=== PATIENT | female | born 1940 | race Caucasian/White ===

== ENCOUNTER → 2017-05-14 | Outpatient (CLI) | payer OTHER, MEDICAID | END | disposition home or self-care (01) | LOC: KCIC US 11:51 | DX: M79.604 Pain in right leg (principal) | CPT/HCPCS: 93971 ==

== ENCOUNTER → 2017-10-05 | Outpatient (CLI) | payer OTHER, MEDICAID ==
[2017-10-06 10:42] LABS: MRSA BY PCR Negative (Negative)
== END | disposition home or self-care (01) ==
LOC: SURGPAT 12:31
DX: Z01.818 Encounter for other preprocedural examination (principal); M17.11 Unilateral primary osteoarthritis, right knee; E11.9 Type 2 diabetes mellitus without complications; R00.0 Tachycardia, unspecified
CPT/HCPCS: 71046; 87641; 93005

== ENCOUNTER 2017-10-27 09:36 | Inpatient (IN) | payer OTHER, MEDICAID ==
[2017-10-27] VITALS (7 sets, daily range): BP systolic 100–134; BP diastolic 56–68
[~2017-10-27] VITALS: Ht 160 cm; Wt 67.6 kg
[~2017-10-27 09:36] MED LIST: ASCO-78 PO; CALC-56 PO; CHOL10002 PO; CLINDAMYCIN 900MG PREMIX 50 ML IV PRN; DEXAMETHASONE SOD PHOS 20 MG/5 ML VIAL. ONE; FERR325T14 PO; GLIP10TA13 PO; HYDROcodone/APAP 7.5/325MG 1 TAB TABLET PO PRN; INSU100V13 SQ; IV RINGERS,LACTATED 1000ML 1,000 ML IV SCH; KETOROLAC 30 MG/ML INJ FOR OR. INJ ONE; LACT1CAP29 PO; LEVO25TA4 PO; LIDOCAINE 1% PF 2 ML VIAL. ID PRN; LIDOCAINE 2% PF Vial for OR 5 ML VIAL. ONE; LOSA50TA6 PO; LOVA20TA2 PO; MELOXICAM 7.5 MG TABLET PO PRN; METF850T2 PO; MORPHINE SULFATE 2 MG/ML VIAL. IV PRN; MORPHINE SULFATE 5 MG, KETOROLAC 30MG VIAL 30 MG, ROPIVacaine 0.5% PF 60 ML, EPINEPHrin... INT ART ONE; ONDANSETRON PF 4 MG/2 ML VIAL. IV PRN; ONDANSETRON PF 4 MG/2 ML VIAL. ONE; PROCHLORPERAZINE 10 MG/2 ML VIAL. IV PRN; PROP15DR OP; PROPOFOL 20 ML IV ONE; SEVOFLURANE 61 TO 120 MINUTES. IH ONE; SUCR1TAB PO; TRANEXAMIC ACID 1,000 MG in IV NS 50ML -- 1ST BAG INJ ONE; TRANEXAMIC ACID 1,000 MG in IV NS 50ML -- 2ND BAG INJ ONE; VIT1TABL32 PO; fentaNYL PF VIAL 100 MCG/2 ML VIAL IV PRN; fentaNYL PF VIAL 100 MCG/2 ML VIAL ONE
--- NOTE | 2017-10-27 10:51 | HP ---
ADMIT DATE: 10/27/2017 CHIEF COMPLAINT: Right knee pain, degenerative change. HISTORY OF PRESENT ILLNESS: The patient has right knee pain, worsening with time. She has wqfl-bh-[id number] arthropathy and the steroid injection only lasted about 3 weeks. She continues to have severe pain with activity and on startup, very limiting to her activities of daily living. PAST MEDICAL HISTORY: Significant for retinopathy. PAST SURGICAL HISTORY: Left femur fracture repair, left hip arthroplasty, gallbladder surgery, cataract surgeries and tonsillectomy. FAMILY HISTORY: Breast cancer in her mother, heart disease in her father. SOCIAL HISTORY: Denies smoking, alcohol or drug use. MEDICATIONS: Medication list is reviewed. ALLERGIES: INCLUDE PENICILLIN, WHICH GIVE HER HIVES; A COUGH WITH LISINOPRIL AND VOMITING WITH SULFA. REVIEW OF SYSTEMS: Denies any chest pain, shortness of breath, recent fever, chills or other constitutional symptoms. PHYSICAL EXAMINATION: VITAL SIGNS: Per admission sheet. HEENT: Atraumatic, normocephalic. HEART: Regular rate and rhythm. LUNGS: Clear to auscultation bilaterally. ABDOMEN: Benign. EXTREMITIES: Knee examination shows significant crepitus on motion. She has a slight effusion, pain over the medial joint line, a Ontiveros cyst palpable posteriorly, and slight varus. No gross instability. Normal examination of the contralateral knee. Well-healed incision from hip arthroplasty. Normal alignment and stability of bilateral hips and ankles. IMPRESSION: Osteoarthritis, right knee with medial-sided knee pain. TREATMENT PLAN: We have previously discussed total knee arthroplasty with her, risks benefits and postoperative course, including the possibility of infection, nerve or blood vessel damage, medical or other anesthetic complications, premature wear or loosening, continued pain among others. All her questions were answered. She wishes to proceed with surgical evaluation and treatment, which will occur today with [facility] admission to follow. AIYANA ENNIS MD DR: MELISSA/livia JOB#: [id number] / [id number]
[2017-10-27] MEDS ORDERED: PHENYLEPHRINE in 0.9% NACL PF 1 MG/10 ML SYRINGE. IV ONE (10:56)
[2017-10-27] MEDS: IV DEXTROSE 5 %-0.45 % NACL 1,000 ML IV SCH ×2 (12:32→20:51)
[2017-10-27] MEDS ORDERED: PROCHLORPERAZINE 10 MG/2 ML VIAL. IV PRN (12:45)
[2017-10-27] MEDS ORDERED: traMADol 50 MG TABLET PO PRN ×2 (12:45)
[2017-10-27] MEDS ORDERED: MORPHINE SULFATE 2 MG/ML VIAL. IV PRN (12:45)
[2017-10-27] MEDS ORDERED: DEXTROSE 50% 25 GM / 50ML DISP.SYRIN. IV PRN ×2 (12:45→17:45)
[2017-10-27] MEDS ORDERED: HYDROcodone/APAP 7.5/325MG 1 TAB TABLET PO PRN (12:45)
[2017-10-27] MEDS ORDERED: oxyCODONE/APAP 5/325 1 TAB TABLET PO PRN (12:45)
[2017-10-27] MEDS ORDERED: oxyCODONE/APAP 7.5/325 1 TAB TABLET PO PRN (12:45)
[2017-10-27] MEDS ORDERED: HYDROcodone/APAP 10/325 1 TAB TABLET PO PRN (12:45)
[2017-10-27] MEDS ORDERED: diphenhydrAMINE 50 MG/ML VIAL IV PRN (12:45)
[2017-10-27] MEDS ORDERED: 0.9 % SODIUM CHLORIDE 10 ML DISP.SYRIN. IV PRN (12:45)
[2017-10-27] MEDS ORDERED: ZOLPIDEM 5 MG TABLET. PO PRN (12:45)
[2017-10-27] MEDS ORDERED: fentaNYL PF VIAL 100 MCG/2 ML VIAL IV PRN ×2 (12:45)
[2017-10-27] MEDS ORDERED: MORPHINE SULFATE 4 MG/ML VIAL. IV PRN (12:45)
[2017-10-27] MEDS ORDERED: CALCIUM CARBONATE 500 MG TAB.CHEW PO PRN (12:45)
--- NOTE | 2017-10-27 13:41 | PDOC4 ---
Operative Note Operative Note Date of procedure 10/27/2017 Preoperative diagnosis: Degenerative joint disease right knee Postoperative diagnosis: Same Operative procedure: Right total knee arthroplasty Surgeon: Yolanda Assist: Mehdi Anesthesia: Gen. Estimated blood loss: 500 mL Complications: None Operative indications: Jessika is a 77-year-old female with ongoing and increasing right knee pain unresponsive to nonoperative treatment now severely affecting her activities of daily living worse on start up and with activity. We had previously discussed risks benefits postoperative course of total knee arthroplasty including the possibility of infection continued pain nerve or blood vessel damage medical or other anesthetic complications among others all her questions were answered and she wishes to proceed with surgical evaluation and treatment Operative text: Patient was identified procedure verified patient placed in the supine position on the operating table. After adequate amounts of general anesthesia were administered the right lower extremity was prepped and draped in standard sterile fashion and after timeout was performed patient procedure identified and verified a midline incision was made medial parapatellar approach fat pad was excised a short intramedullary guide was used due to her hardware present in the femur distal femoral cut was made and femur was sized at a size 2 femoral component anterior posterior and chamfer cuts were then made posterior cruciate ligament was preserved with a standard extra medullary tibial cut and flexion and extension gaps balanced with a size 9 spacer. Tibia was sized at a size 2 drilled and broached and a biconvex patella was prepared and medialized lateral patellar bone was chamfered to minimize any contact. Excellent positioning tracking ligament balance and motion was noted trial components were removed and bleeding points were controlled in the synovium and capsule with the aqua Mantis device and the following components were cemented in place with polymethyl methacrylate cement a size 2 right journey tibial baseplate a size 2 right cruciate retaining Oxinium femoral component with a 9 mm spacer and a 23 mm biconvex patellar component. Excess cement was removed and when dry a 9 mm journey 2 articular insert was snapped into place after thorough irrigation with normal saline solution Hemovac drain and pain catheter were placed pain catheter mixture was injected throughout the joint capsule closure accomplished with interrupted #2 Ethibond suture and reinforced with #1 PDS strata fix suture subcutaneous closure with buried Vicryl suture subcuticular 3-0 Monocryl strata fix used to close the skin and a lizette drain was placed patient was returned to recovery room in stable condition having tolerated the procedure well no tourniquet was used for the procedure AIYANA ENNIS MD Oct 27, 2017 13:41
--- NOTE | 2017-10-27 13:44 | RAD ---
2 views right knee 10/27/2017 1:16 PM Indication: post op Comparison: knee radiographs June 02, 2009 Findings: There are postsurgical changes consistent with recent total knee arthroplasty. Surgical drainage catheter noted in place. No fracture or dislocation is seen. Hardware appears normal in position. Joint effusion and intra-articular gas noted. Partially visualized plate and screw constructs involving the distal femoral diaphysis are seen with changes of chronic bony healing including medial callus formation. IMPRESSION: Expected post surgical changes following recent total knee arthroplasty Electronically signed by: Navin Cabrera MD (10/27/2017 1:40 PM) [facility]
[2017-10-27] MEDS ORDERED: WARFARIN 7.5 MG TABLET. PO ONE (16:00)
[2017-10-27] MEDS: FERROUS SULFATE 325 MG TABLET. PO SCH (17:00)
[2017-10-27] MEDS: metFORMIN 850 MG TABLET PO SCH (17:00)
[2017-10-27] MEDS: CLINDAMYCIN 900MG PREMIX 50 ML IV SCH ×2 (17:11→22:47)
[2017-10-27] MEDS: KETOROLAC 30MG VIAL 30 MG, BUPIVACAINE MPF 0.25% 20 ML, EPINEPHrine 0.5 MG in TOTAL VOL... INT ART SCH (17:40)
[2017-10-27] MEDS: INSULIN LISPRO 300 UNITS/3 ML INSULN.PEN. SQ SCH (17:47)
[2017-10-27] MEDS: KETOROLAC TROMETHAMINE 10 MG TABLET PO SCH ×2 (18:00→23:53)
[2017-10-27] MEDS: ATORVASTATIN CALCIUM 10 MG TABLET. PO SCH (20:50)
[2017-10-27] MEDS: SUCRALFATE 1 GM TABLET. PO SCH (20:50)
[2017-10-27] MEDS: INSULIN GLARGINE 300 UNITS/3 ML INSULN.PEN. SQ SCH (20:56)
[2017-10-27] MEDS: POLYVINYL ALCOHOL 1.4% OPHTH SOLUTION 15ML BOTTLE. OU SCH (21:00)
[2017-10-28 03:15] VITALS: BP 103/51
[2017-10-28] MEDS: CLINDAMYCIN 900MG PREMIX 50 ML IV SCH (04:47)
[2017-10-28 05:00] LABS: PROTHROMBIN TIME PATIENT 14.8 SEC (11.7-14.0)
[2017-10-28 05:01] LABS: HEMATOCRIT 28.7 % (36.0-47.0); HEMOGLOBIN 9.7 g/dL (12.0-15.5)
[2017-10-28] MEDS: KETOROLAC 30MG VIAL 30 MG, BUPIVACAINE MPF 0.25% 20 ML, EPINEPHrine 0.5 MG in TOTAL VOL... INT ART SCH (05:47)
[2017-10-28] MEDS: KETOROLAC TROMETHAMINE 10 MG TABLET PO SCH ×4 (05:47→23:51)
[2017-10-28] MEDS ORDERED: MAGNESIUM HYDROXIDE 2,400 MG/30 ML ORAL.SUSP. PO PRN (06:00)
[2017-10-28 06:15] VITALS: BP 92/50
[2017-10-28] MEDS: SUCRALFATE 1 GM TABLET. PO SCH ×2 (07:01→21:06)
[2017-10-28] MEDS: LEVOTHYROXINE 25 MCG TABLET. PO SCH ×2 (07:01→08:03)
--- NOTE | 2017-10-28 07:34 | PDOC ---
ORTHO PROGRESS NOTES Subjective Patient states doing well but was nauseated earlier. Post-op Day: 1 Procedure R TKA Vitals Vital Signs Date Time Temp Pulse Resp B/P (MAP) Pulse Ox O2 Delivery O2 Flow Rate FiO2 10/28/17 06:15 98.0 78 18 92/50 (64) 94 Room Air 98.0 10/27/17 15:30 2.0 Labs Laboratory Tests Test 10/27/17 10:15 10/27/17 10:20 10/27/17 11:47 10/27/17 12:51 Prothrombin Time 12.0 SEC (11.7-14.0) Prothromb Time International Ratio 0.9 (0.8-1.1) Activated Partial Thromboplast Time 28 SEC (24-38) Glucose (Fingerstick) 196 mg/dL (70-99) 211 mg/dL (70-99) 145 mg/dL (70-99) Test 10/27/17 16:52 10/27/17 20:38 10/28/17 04:15 10/28/17 06:22 Glucose (Fingerstick) 267 mg/dL (70-99) 286 mg/dL (70-99) 280 mg/dL (70-99) Hemoglobin 9.7 g/dL (12.0-15.5) Hematocrit 28.7 % (36.0-47.0) Mean Corpuscular Hemoglobin Concent 34 g/dL (31-37) Prothrombin Time 14.8 SEC (11.7-14.0) Prothromb Time International Ratio 1.2 (0.8-1.1) Laboratory Tests Test 10/27/17 10:15 10/27/17 10:20 10/27/17 11:47 10/27/17 12:51 Prothrombin Time 12.0 SEC (11.7-14.0) Prothromb Time International Ratio 0.9 (0.8-1.1) Activated Partial Thromboplast Time 28 SEC (24-38) Glucose (Fingerstick) 196 mg/dL (70-99) 211 mg/dL (70-99) 145 mg/dL (70-99) Test 10/27/17 16:52 10/27/17 20:38 10/28/17 04:15 10/28/17 06:22 Glucose (Fingerstick) 267 mg/dL (70-99) 286 mg/dL (70-99) 280 mg/dL (70-99) Hemoglobin 9.7 g/dL (12.0-15.5) Hematocrit 28.7 % (36.0-47.0) Mean Corpuscular Hemoglobin Concent 34 g/dL (31-37) Prothrombin Time 14.8 SEC (11.7-14.0) Prothromb Time International Ratio 1.2 (0.8-1.1) Assessment and Plan N/V intact at the lower extremity moving toes and feet on request dressing dry and intact PT today JENI MELO APRN Oct 28, 2017 07:34
[2017-10-28] MEDS: glipiZIDE 5 MG TABLET PO SCH (08:02)
[2017-10-28] MEDS: metFORMIN 850 MG TABLET PO SCH ×2 (08:02→17:43)
[2017-10-28] MEDS: SENNOSIDES/DOCUSATE 8.6/50MG TABLET. PO SCH (08:02)
[2017-10-28] MEDS: MULTIVITAMIN with MINERAL TABLET. PO SCH (08:05)
[2017-10-28] MEDS: FERROUS SULFATE 325 MG TABLET. PO SCH ×2 (08:05→17:00)
[2017-10-28] MEDS: INSULIN LISPRO 300 UNITS/3 ML INSULN.PEN. SQ SCH ×3 (08:11→17:00)
[2017-10-28] MEDS ORDERED: FERROUS SULFATE 325 MG TABLET. PO SCH (09:00)
[2017-10-28] MEDS: LOSARTAN POTASSIUM 50 MG TABLET. PO SCH (09:00)
[2017-10-28] MEDS: IV DEXTROSE 5 %-0.45 % NACL 1,000 ML IV SCH ×2 (09:50→18:26)
[2017-10-28] MEDS: ACETAMINOPHEN 325 MG TABLET. PO PRN (10:23)
[2017-10-28 11:50] VITALS: BP 132/64
[2017-10-28] MEDS: ONDANSETRON PF 4 MG/2 ML VIAL. IV PRN (11:53)
[2017-10-28] MEDS: PROCHLORPERAZINE 5 MG TABLET. PO PRN (15:13)
[2017-10-28] MEDS ORDERED: WARFARIN 5 MG TABLET. PO ONE (16:00)
[2017-10-28] MEDS ORDERED: BISACODYL 10 MG SUPP.RECT. PR PRN (16:00)
[2017-10-28 18:31] VITALS: BP 105/58
--- NOTE | 2017-10-28 18:52 | PDOC ---
PROGRESS NOTES Subjective Subjective Problems overnight: Jessika was nauseated earlier now resolved reports her right knee is doing well Objective Vital Signs Vital Signs Date Time Temp Pulse Resp B/P (MAP) Pulse Ox O2 Delivery O2 Flow Rate FiO2 10/28/17 18:31 98.1 80 18 105/58 (74) 98 Room Air 98.1 10/27/17 15:30 2.0 Physical Exam Tash dressing shows no drainage whatsoever she has some mild swelling good motion and stability distal neurovascular status intact Labs Laboratory Tests Test 10/27/17 10:15 10/27/17 10:20 10/27/17 11:47 10/27/17 12:51 Prothrombin Time 12.0 SEC (11.7-14.0) Prothromb Time International Ratio 0.9 (0.8-1.1) Activated Partial Thromboplast Time 28 SEC (24-38) Glucose (Fingerstick) 196 mg/dL (70-99) 211 mg/dL (70-99) 145 mg/dL (70-99) Test 10/27/17 16:52 10/27/17 20:38 10/28/17 04:15 10/28/17 06:22 Glucose (Fingerstick) 267 mg/dL (70-99) 286 mg/dL (70-99) 280 mg/dL (70-99) Hemoglobin 9.7 g/dL (12.0-15.5) Hematocrit 28.7 % (36.0-47.0) Mean Corpuscular Hemoglobin Concent 34 g/dL (31-37) Prothrombin Time 14.8 SEC (11.7-14.0) Prothromb Time International Ratio 1.2 (0.8-1.1) Test 10/28/17 11:46 10/28/17 16:05 Glucose (Fingerstick) 213 mg/dL (70-99) 122 mg/dL (70-99) Laboratory Tests Test 10/27/17 20:38 10/28/17 04:15 10/28/17 06:22 10/28/17 11:46 Glucose (Fingerstick) 286 mg/dL (70-99) 280 mg/dL (70-99) 213 mg/dL (70-99) Hemoglobin 9.7 g/dL (12.0-15.5) Hematocrit 28.7 % (36.0-47.0) Mean Corpuscular Hemoglobin Concent 34 g/dL (31-37) Prothrombin Time 14.8 SEC (11.7-14.0) Prothromb Time International Ratio 1.2 (0.8-1.1) Test 10/28/17 16:05 Glucose (Fingerstick) 122 mg/dL (70-99) Assessment Assessment POD# [1], S/P [total knee arthroplasty] Plan Plan of Care Continue mobilize weightbearing as tolerated with physical therapy Coumadin anticoagulation AIYANA ENNIS MD Oct 28, 2017 18:52
[2017-10-28] MEDS: ATORVASTATIN CALCIUM 10 MG TABLET. PO SCH (21:06)
[2017-10-28] MEDS: POLYVINYL ALCOHOL 1.4% OPHTH SOLUTION 15ML BOTTLE. OU SCH (21:06)
[2017-10-28] MEDS: INSULIN GLARGINE 300 UNITS/3 ML INSULN.PEN. SQ SCH (21:10)
[2017-10-29 04:48] LABS: HEMATOCRIT 27.6 % (36.0-47.0); HEMOGLOBIN 9.6 g/dL (12.0-15.5)
[2017-10-29 05:00] LABS: PROTHROMBIN TIME PATIENT 19.8 SEC (11.7-14.0)
[2017-10-29] MEDS: KETOROLAC TROMETHAMINE 10 MG TABLET PO SCH ×3 (05:37→17:00)
[2017-10-29 06:30] VITALS: BP 117/54
[2017-10-29] MEDS: SUCRALFATE 1 GM TABLET. PO SCH ×2 (07:09→20:59)
[2017-10-29] MEDS: LEVOTHYROXINE 25 MCG TABLET. PO SCH (07:09)
[2017-10-29] MEDS: glipiZIDE 5 MG TABLET PO SCH (07:30)
[2017-10-29] MEDS: FERROUS SULFATE 325 MG TABLET. PO SCH ×2 (07:37→17:00)
[2017-10-29] MEDS: INSULIN LISPRO 300 UNITS/3 ML INSULN.PEN. SQ SCH ×3 (07:37→17:13)
[2017-10-29] MEDS: metFORMIN 850 MG TABLET PO SCH ×2 (08:00→17:04)
[2017-10-29] MEDS: ONDANSETRON PF 4 MG/2 ML VIAL. IV PRN (08:16)
[2017-10-29] MEDS: SENNOSIDES/DOCUSATE 8.6/50MG TABLET. PO SCH (09:00)
[2017-10-29] MEDS: LOSARTAN POTASSIUM 50 MG TABLET. PO SCH (09:00)
[2017-10-29] MEDS: MULTIVITAMIN with MINERAL TABLET. PO SCH (09:00)
[2017-10-29] MEDS: PROCHLORPERAZINE 5 MG TABLET. PO PRN (11:36)
--- NOTE | 2017-10-29 12:28 | PDOC ---
PROGRESS NOTES Subjective Subjective Problems overnight: Nauseated today but knee feels good and otherwise doing well with physical therapy Objective Vital Signs Vital Signs Date Time Temp Pulse Resp B/P (MAP) Pulse Ox O2 Delivery O2 Flow Rate FiO2 10/29/17 08:29 Room Air 10/29/17 06:30 97.9 85 20 117/54 (75) 96 97.9 10/27/17 15:30 2.0 Physical Exam Tash dressing with no drainage whatsoever minimal swelling good alignment motion stability intact distal neurovascular status Labs Laboratory Tests Test 10/27/17 12:51 10/27/17 16:52 10/27/17 20:38 10/28/17 04:15 Glucose (Fingerstick) 145 mg/dL (70-99) 267 mg/dL (70-99) 286 mg/dL (70-99) Hemoglobin 9.7 g/dL (12.0-15.5) Hematocrit 28.7 % (36.0-47.0) Mean Corpuscular Hemoglobin Concent 34 g/dL (31-37) Prothrombin Time 14.8 SEC (11.7-14.0) Prothromb Time International Ratio 1.2 (0.8-1.1) Test 10/28/17 06:22 10/28/17 11:46 10/28/17 16:05 10/28/17 20:41 Glucose (Fingerstick) 280 mg/dL (70-99) 213 mg/dL (70-99) 122 mg/dL (70-99) 152 mg/dL (70-99) Test 10/29/17 04:30 10/29/17 06:22 10/29/17 11:31 Hemoglobin 9.6 g/dL (12.0-15.5) Hematocrit 27.6 % (36.0-47.0) Mean Corpuscular Hemoglobin Concent 35 g/dL (31-37) Prothrombin Time 19.8 SEC (11.7-14.0) Prothromb Time International Ratio 1.8 (0.8-1.1) Glucose (Fingerstick) 110 mg/dL (70-99) 233 mg/dL (70-99) Laboratory Tests Test 10/28/17 16:05 10/28/17 20:41 10/29/17 04:30 10/29/17 06:22 Glucose (Fingerstick) 122 mg/dL (70-99) 152 mg/dL (70-99) 110 mg/dL (70-99) Hemoglobin 9.6 g/dL (12.0-15.5) Hematocrit 27.6 % (36.0-47.0) Mean Corpuscular Hemoglobin Concent 35 g/dL (31-37) Prothrombin Time 19.8 SEC (11.7-14.0) Prothromb Time International Ratio 1.8 (0.8-1.1) Test 10/29/17 11:31 Glucose (Fingerstick) 233 mg/dL (70-99) Assessment Assessment POD# [2], S/P [right total knee arthroplasty] Plan Plan of Care IV was restarted due to nausea, blood sugars remained stable Continue Coumadin anticoagulation and physical therapy AIYANA ENNIS MD Oct 29, 2017 12:28
[2017-10-29] MEDS ORDERED: MAGNESIUM HYDROXIDE 2,400 MG/30 ML ORAL.SUSP. PO PRN (15:00)
[2017-10-29] MEDS ORDERED: WARFARIN 1 MG TABLET. PO ONE (16:00)
[2017-10-29 19:00] VITALS: BP 111/56
[2017-10-29] MEDS: ATORVASTATIN CALCIUM 10 MG TABLET. PO SCH (20:58)
[2017-10-29] MEDS: ACETAMINOPHEN 325 MG TABLET. PO PRN (20:59)
[2017-10-29] MEDS: POLYVINYL ALCOHOL 1.4% OPHTH SOLUTION 15ML BOTTLE. OU SCH (20:59)
[2017-10-29] MEDS: INSULIN GLARGINE 300 UNITS/3 ML INSULN.PEN. SQ SCH (21:06)
[2017-10-30] MEDS: KETOROLAC TROMETHAMINE 10 MG TABLET PO SCH ×3 (06:00→11:53)
[2017-10-30 06:21] VITALS: BP 120/61
[2017-10-30] MEDS: SUCRALFATE 1 GM TABLET. PO SCH (07:09)
[2017-10-30 07:41] LABS: HEMATOCRIT 31.9 % (36.0-47.0); HEMOGLOBIN 10.8 g/dL (12.0-15.5)
[2017-10-30] MEDS: INSULIN LISPRO 300 UNITS/3 ML INSULN.PEN. SQ SCH ×2 (08:00→11:44)
[2017-10-30] MEDS: FERROUS SULFATE 325 MG TABLET. PO SCH (08:00)
[2017-10-30 08:06] LABS: PROTHROMBIN TIME PATIENT 17.9 SEC (11.7-14.0)
[2017-10-30] MEDS: metFORMIN 850 MG TABLET PO SCH (08:10)
[2017-10-30] MEDS: glipiZIDE 5 MG TABLET PO SCH (08:11)
[2017-10-30] MEDS: MULTIVITAMIN with MINERAL TABLET. PO SCH (09:00)
[2017-10-30] MEDS: SENNOSIDES/DOCUSATE 8.6/50MG TABLET. PO SCH (09:00)
[2017-10-30] MEDS ORDERED: TRAM50TA PO (10:47)
[2017-10-30] MEDS ORDERED: WARF2TAB96 PO (10:48)
[2017-10-30 11:46] VITALS: BP 131/72
[2017-10-30] MEDS: LOSARTAN POTASSIUM 50 MG TABLET. PO SCH (11:48)
[2017-10-30] MEDS ORDERED: WARFARIN 4 MG TABLET. PO ONE (14:00)
[2017-10-30 14:53] VITALS: BP 115/61
--- NOTE | 2017-10-30 15:09 | DS ---
DATE OF DISCHARGE: 10/30/2017 PRINCIPAL DIAGNOSIS: Degenerative joint disease, right knee. PROCEDURE: Right total knee arthroplasty. DISPOSITION: Home with home health. ACTIVITY: Weightbearing as tolerated, standard total knee protocol. Follow up with Dr. Guerrero in 2 weeks, maintain CAROLE drain. Report any redness, drainage, fever, chills, uncontrolled pain or other problems. DISPOSITION MEDICATIONS: Tramadol 50 mg p.o. q.6 hours p.r.n. pain, Coumadin as directed by anticoagulation clinic, resume preoperative medications. BRIEF DESCRIPTION OF HOSPITAL COURSE: The patient underwent an uncomplicated total knee arthroplasty. She did very well with physical therapy, had overall very good pain control throughout as well. Her main issue was some on and off nausea, which was present despite scopolamine patch and nausea medications. She underwent resumption of her fluid on postoperative day #2 due to the nausea and decreased oral intake. Blood sugar control remained good. She progressed well through physical therapy, and on postoperative day #3, she was noted to be doing very well, was stable and discharged home in stable condition. AIYANA GUERRERO MD DR: MELISSA/livia JOB#: [id number] / [id number]
[2017-10-31] MEDS ORDERED: WARFARIN 4 MG TABLET. PO SCH (16:00)
--- NOTE | 2017-11-01 16:07 | PATHOLOGY ---
[facility] Accession Number: [id number] . 01 Material submitted: . RIGHT KNEE BONE AND TISSUE . 01 Clinical history: . Right knee osteoarthritis . 02 Diagnosis: "Right knee bone and tissue": - Degenerative osteoarthritis. - Portions of synovium with mild chronic inflammation. (SKM:carlos; 10/29/2017) QMS/10/30/2017 . 02 Electronically signed: . Vijay Cooper MD, Pathologist NPI- [id number] . 01 Gross description: . The specimen is received in formalin, labeled "[place], Jessika and right knee bone and tissue", are multiple segments of merino-yellow bones with recognizable tibia plateau, patella, meniscus and merino-yellow and patel-white soft tissue measuring 10.0 x 9.5 x 2.0 in aggregate. Several fragments have eburnated areas with the remaining articular cartilage merino-yellow and smooth. Peripheral osteophytes are present. Carriage Setter sections are submitted in A1-A2 (A1 = bone after decalcification). ([facility]; 10/28/2017) SHS/SHS . 02 Pathologist provided ICD-10: M17.11, M65.861 . 02 CPT . 518350, [id number] Performed at: 01 [facility] [address], [place] [id number] MD Rober Sanchez MD Phone: [phone] Performed at: 02 [facility] [address] [id number] MD Steve Dennis MD Phone: [phone]
== END 2017-10-30 15:25 | disposition home health service (06) | DRG 470 ==
LOC: OPSVCIP 09:36 → 4 SOUTHEST 14:31
PROVIDERS: ADMIT Orthopaedic Surgery; ATTEND Orthopaedic Surgery
PROC: 0SRC069 Replacement of Right Knee Joint with Oxidized Zirconium on Polyethylene Synthetic Substitute, Cemented, Open Approach (ICD-10-PCS; principal; 2017-10-27 11:15)
DX: M17.11 Unilateral primary osteoarthritis, right knee (principal); Z96.642 Presence of left artificial hip joint; H35.00 Unspecified background retinopathy; Z90.89 Acquired absence of other organs; Z98.49 Cataract extraction status, unspecified eye; Z88.0 Allergy status to penicillin; Z88.2 Allergy status to sulfonamides; Z88.8 Allergy status to other drugs, medicaments and biological substances; Z80.3 Family history of malignant neoplasm of breast; Z82.49 Family history of ischemic heart disease and other diseases of the circulatory system
CPT/HCPCS: 36415; 73560; 82962; 85014; 85018; 85610; 85730; 86850; 86870; 86900; 86901; 86902; 86922; 88305; 88311; A7015; C1713; J0171; J0780; J1100; J1815; J1885; J2001; J2270; J2370; J2405; J2704; J2795; J3010; J3490; J7030; J7120; Q0164; 97110; 97116; 97150; 97530; 97535; C1769

== ENCOUNTER 2017-12-19 10:43 | Emergency (ER) | payer OTHER, MEDICAID ==
[~2017-12-19] VITALS: Ht 160 cm; Wt 64.9 kg
[~2017-12-19 10:43] MED LIST changes: +BISM262T9 PO; -CLINDAMYCIN 900MG PREMIX 50 ML IV PRN; -DEXAMETHASONE SOD PHOS 20 MG/5 ML VIAL. ONE; -HYDROcodone/APAP 7.5/325MG 1 TAB TABLET PO PRN; -IV RINGERS,LACTATED 1000ML 1,000 ML IV SCH; -KETOROLAC 30 MG/ML INJ FOR OR. INJ ONE; -LIDOCAINE 1% PF 2 ML VIAL. ID PRN; -LIDOCAINE 2% PF Vial for OR 5 ML VIAL. ONE; -LOSA50TA6 PO; +LOSA50TA7 PO; -MELOXICAM 7.5 MG TABLET PO PRN; -METF850T2 PO; +METF850T8 PO; +METR250T11 PO; -MORPHINE SULFATE 2 MG/ML VIAL. IV PRN; -MORPHINE SULFATE 5 MG, KETOROLAC 30MG VIAL 30 MG, ROPIVacaine 0.5% PF 60 ML, EPINEPHrin... INT ART ONE; +OMEP20TA8 PO; -ONDANSETRON PF 4 MG/2 ML VIAL. IV PRN; -ONDANSETRON PF 4 MG/2 ML VIAL. ONE; -PROCHLORPERAZINE 10 MG/2 ML VIAL. IV PRN; -PROPOFOL 20 ML IV ONE; -SEVOFLURANE 61 TO 120 MINUTES. IH ONE; +TETR250C75 PO; +TRAM50TA PO; -TRANEXAMIC ACID 1,000 MG in IV NS 50ML -- 1ST BAG INJ ONE; -TRANEXAMIC ACID 1,000 MG in IV NS 50ML -- 2ND BAG INJ ONE; +WARF2TAB96 PO; -fentaNYL PF VIAL 100 MCG/2 ML VIAL IV PRN; -fentaNYL PF VIAL 100 MCG/2 ML VIAL ONE
[2017-12-19 11:02] VITALS: BP 128/61
--- NOTE | 2017-12-19 13:09 | RAD ---
EXAM: Right upper extremity venous Doppler. HISTORY: Right upper extremity pain/swelling. Discoloration after IV contrast injection. COMPARISON: None. FINDINGS: Grayscale and Doppler analysis of the right upper extremity deep venous system was performed with graded compression and augmentation. The internal jugular, subclavian, axillary, brachial, basilic, cephalic, radial and ulnar veins were assessed. There is no evidence of deep venous thrombosis. No soft tissue collection is identified. IMPRESSION: 1. No evidence of deep venous thrombosis. Electronically signed by: Raad Engel MD (12/19/2017 1:06 PM) [facility]
--- NOTE | 2017-12-19 13:32 | PHYS DOC ---
Past Medical History Past Medical History: Diabetes-Type II, High Cholesterol, Hypertension, Other Additional Past Medical Histor: H-PYLORIC BACTERIA Past Surgical History: Knee Replacement Additional Past Surgical Histo: RIGHT KNEE Alcohol Use: None Drug Use: None Adult General Chief Complaint Chief Complaint: SKIN PROBLEM HPI HPI Patient is a 77 year old female with history of diabetes type 2, hypertension, who presents today with bruising to the right antecubital joint that began yesterday after having CT with IV contrast. Patient denies any pain to the area. Denies any fever. Review of Systems Review of Systems Constitutional: Denies fever or chills [] Eyes: Denies change in visual acuity, redness, or eye pain [] HENT: Denies nasal congestion or sore throat [] Respiratory: Denies cough or shortness of breath [] Cardiovascular: No additional information not addressed in HPI [] GI: Denies abdominal pain, nausea, vomiting, bloody stools or diarrhea [] : Denies dysuria or hematuria [] Musculoskeletal: Denies back pain or joint pain [] Integument: Reports bruising to the right antecubital joint Neurologic: Denies headache, focal weakness or sensory changes [] All other systems were reviewed and found to be within normal limits, except as documented in this note. Allergies Allergies Allergies Coded Allergies Type Severity Reaction Last Updated Verified Penicillins Allergy Intermediate Itching 10/27/17 Yes Sulfa (Sulfonamide Antibiotics) Adverse Reaction Intermediate Nausea 10/27/17 Yes lisinopril Adverse Reaction Intermediate 10/27/17 Yes Physical Exam Physical Exam Constitutional: Well developed, well nourished, no acute distress, non-toxic appearance. [] HENT: Normocephalic, atraumatic, bilateral external ears normal, oropharynx moist, no oral exudates, nose normal. [] Eyes: PERRLA, EOMI, conjunctiva normal, no discharge. [] Neck: Normal range of motion, no tenderness, supple, no stridor. [] Cardiovascular:Heart rate regular rhythm, no murmur [] Lungs & Thorax: Bilateral breath sounds clear to auscultation [] Abdomen: Bowel sounds normal, soft, no tenderness, no masses, no pulsatile masses. [] Skin: Warm, dry, right before meals with a small area of bruising approximately 1 x 1 cm. There is no tenderness to the area, no warmth to the area, no drainage. Full range of motion to the right upper extremity. Adequate radial medial and ulnar sensation to the right upper extremity. +2 right radial pulse. Back: No tenderness, no CVA tenderness. [] Extremities: No tenderness, no cyanosis, no clubbing, ROM intact, no edema. [] Neurologic: Alert and oriented X 3, normal motor function, normal sensory function, no focal deficits noted. [] Psychologic: Affect normal, judgement normal, mood normal. [] Current Patient Data Vital Signs Vital Signs Date Time Temp Pulse Resp B/P (MAP) Pulse Ox O2 Delivery O2 Flow Rate FiO2 12/19/17 11:02 98.6 102 16 128/61 (83) 98 Room Air 98.6 EKG EKG [] Radiology/Procedures Radiology/Procedures [] Course & Med Decision Making Course & Med Decision Making Pertinent Labs and Imaging studies reviewed. (See chart for details) This is a 77-year-old female patient presenting to the ED today complaining of right antecubital joint and bruising that began yesterday after having CT with IV contrast. The area does not appear infected. Venous Doppler of the right upper extremity is negative. Patient was discharged to home. Instructed to apply warm compresses to the area. Follow-up with PCP in 1-2 weeks. Patient is on Coumadin. Dragon Disclaimer Dragon Disclaimer This electronic medical record was generated, in whole or in part, using a voice recognition dictation system. Departure Departure Impression: Primary Impression: Phlebitis alone Disposition: 01 HOME, SELF-CARE Condition: STABLE Referrals: NENA WOLFE APRN (PCP) Follow up with your doctor in 1 week Patient Instructions: Phlebitis, [id number] Additional Instructions: You were seen with bruising to the right antecubital joint after IV contrast. You do not have a blood clot to your right upper extremity. Continue taking your home medications as ordered by your doctor. Apply warm compresses to the area twice a day. Come back to the ED at any point symptoms worsen. CARIE JUNIOR APRN Dec 19, 2017 13:32
== END 2017-12-19 13:37 | disposition home or self-care (01) ==
LOC: ER 10:43
DX: I80.8 Phlebitis and thrombophlebitis of other sites (principal); S50.01XA Contusion of right elbow, initial encounter; E78.00 Pure hypercholesterolemia, unspecified; E11.9 Type 2 diabetes mellitus without complications; I10 Essential (primary) hypertension; Z88.0 Allergy status to penicillin; Z88.2 Allergy status to sulfonamides; Z88.8 Allergy status to other drugs, medicaments and biological substances; X58.XXXA Exposure to other specified factors, initial encounter; Y93.89 Activity, other specified; Y92.89 Other specified places as the place of occurrence of the external cause; Y99.8 Other external cause status
CPT/HCPCS: 93971; 99284-25

== ENCOUNTER → 2018-04-13 | Outpatient (CLI) | payer OTHER, MEDICAID ==
[~2018-04-13] MED LIST changes: +LOSA-73 PO; -LOSA50TA7 PO; +METR-111 PO; -METR250T11 PO
--- NOTE | 2018-04-13 15:13 | KCIC ---
EXAM: Dual energy x-ray absorptiometry (DEXA). HISTORY: Postmenopausal female presents for osteoporosis screening. COMPARISON: 06/11/2007. TECHNIQUE: Dual energy x-ray absorptiometry of the lumbar spine and left forearm was performed. Calculation of bone mineral density based on standard deviations above or below the expected young adult normal value (T-score) was completed. FINDINGS: The average bone mineral density in the 1st through 4th lumbar vertebrae is 1.115 g/cmxcm, corresponding with a T-score of 0.6. There has been a 6.2% increase in density of the lumbar spine compared to the prior study. The average total bone mineral density in the left radius is 0.481 g/cmxcm, corresponding with a T-score of -1.6. There has been a 2.6% increase in density of the left radius compared to the prior study. IMPRESSION: 1. Osteopenia measured at the left forearm. 2. Normal bone mineral density measured at the lumbar spine. Note: Definitions established by the World Health Organization: 1. Normal: T-score is -1.0 or above. 2. Osteopenia: T-score is between -1.0 and -2.5 . 3. Osteoporosis: T-score is -2.5 or below. Electronically signed by: Dolores Harper MD (04/13/2018 3:08 PM) [place] [id number]
== END | disposition home or self-care (01) ==
LOC: KCIC DEXA 12:19
PROVIDERS: ATTEND Nurse Practitioner Family
DX: T14.8XXA Other injury of unspecified body region, initial encounter (principal); M85.832 Other specified disorders of bone density and structure, left forearm; Z78.0 Asymptomatic menopausal state; Z96.643 Presence of artificial hip joint, bilateral; X58.XXXA Exposure to other specified factors, initial encounter; Y93.89 Activity, other specified; Y92.89 Other specified places as the place of occurrence of the external cause; Y99.8 Other external cause status
CPT/HCPCS: 77080; 77081

== ENCOUNTER → 2019-10-21 | Outpatient (CLI) | payer MEDICARE, MEDICAID ==
--- NOTE | 2019-10-21 14:13 | CARD ---
MR#: [id number] Date of Study: 10/21/2019 Ordering Physician: TANVI DELGADILLO, Referring Physician: TANVI DELGADILLO, Tech: Lyudmila BRINK AARON APPROVED REPORT EXAM: Two-dimensional and M-mode echocardiogram with Doppler and color Doppler. Other Information Quality : AverageHR: 75bpm Rhythm : NSR INDICATION Palpitations RISK FACTORS Hypertension Hyperlipidemia Diabetes 2D DIMENSIONS RVDd3.3 (2.9-3.5cm)Left Atrium(2D)3.5 (1.6-4.0cm) IVSd1.0 (0.7-1.1cm)Aortic Root(2D)3.5 (2.0-3.7cm) LVDd3.9 (3.9-5.9cm)LVOT Diameter2.1 (1.8-2.4cm) PWd1.1 (0.7-1.1cm)LVDs2.4 (2.5-4.0cm) FS (%) 37.1 %SV44.0 ml LVEF(%)67.7 (>50%) Aortic Valve AoV Peak Heri.105.1cm/sAoV VTI21.5cm AO Peak GR.4.4mmHgLVOT Peak Heri.94.3cm/s AO Mean GR.2mmHgAVA (VMAX)2.97cm2 Mitral Valve MV E Hvmvlnwj49.0cm/sMV DECEL [id number] MV A Bkqsivva12.6cm/sE/A Ratio1.1 MV A [id number] Pulmonary Valve PV Peak Ithcriut49.2cm/s Tricuspid Valve TR P. Cpubxwta967gc/sTR Peak Gr.16mmHg Pulmonary Vein S1 Jftkrwod20.1cm/sD2 Qyoqkzxx81.7cm/s PVa nbsubsqj570cocu LEFT VENTRICLE The left ventricle is normal size. There is normal left ventricular wall thickness. The left ventricu lar systolic function is normal. The ejection fraction is 60-65%. There is normal LV segmental wall m otion. The left ventricular diastolic function and filling is normal for age. RIGHT VENTRICLE The right ventricle is normal size. There is normal right ventricular wall thickness. The right ventr icular systolic function is normal. ATRIA The left atrium size is normal. The right atrium size is normal. The interatrial septum is intact wit h no evidence for an atrial septal defect or patent foramen ovale as noted on 2-D or Doppler imaging. AORTIC VALVE The aortic valve is normal in structure and function. Doppler and Color Flow revealed no significant aortic regurgitation. There is no significant aortic valvular stenosis. MITRAL VALVE The mitral valve is normal in structure and function. There is no evidence of mitral valve prolapse. There is no mitral valve stenosis. Doppler and Color Flow revealed no mitral valve regurgitation note d. TRICUSPID VALVE The tricuspid valve is normal in structure and function. Doppler and Color Flow revealed trace tricus pid regurgitation. Estimated PAP 20 mmHg. PULMONIC VALVE The pulmonary valve is normal in structure and function. Doppler and Color Flow revealed no pulmonic valvular regurgitation. GREAT VESSELS The aortic root is normal in size. The ascending aorta is normal in size. The IVC is normal in size a nd collapses >50% with inspiration. PERICARDIAL EFFUSION There is no evidence of significant pericardial effusion. Critical Notification Critical Value: No <Conclusion> The left ventricular systolic function is normal. The ejection fraction is 60-65%. There is normal LV segmental wall motion. Trace tricuspid regurgitation with estimated PAP 20 mmHg. There is no evidence of significant pericardial effusion. Signed by : Ruiz Klein, Electronically Approved : 10/21/2019 14:12:24
== END ==
LOC: ECHO 10:36 → EDBD 11:00
PROVIDERS: ATTEND Internal Medicine Cardiovascular Disease
DX: R00.0 Tachycardia, unspecified (principal)
CPT/HCPCS: 93306